=== PATIENT | male | born 2000 | race Two or more races ===

== ENCOUNTER 2024-06-28 10:59 | Emergency (ER) | payer SELFPAY ==
[2024-06-28] MEDS: Acetaminophen 500 MG Tab PO ONE (12:38)
[2024-06-28] MEDS: Ibuprofen 600 MG Tab PO ONE (12:38)
[2024-06-28] MEDS: Dexamethasone 4 MG Tab PO ONE (12:38)
== END 2024-06-28 14:27 | disposition home or self-care (01) ==
LOC: MW.ED 10:59
DX: H92.03 Otalgia, bilateral (principal); R09.81 Nasal congestion; Z79.899 Other long term (current) drug therapy; Z87.820 Personal history of traumatic brain injury
CPT/HCPCS: 70450; 70480; 99283; A9270; J8540; 99284